=== PATIENT | female | born 1945 | race Caucasian/White ===

== ENCOUNTER 2019-09-21 16:35 | Observation (INO) ==
[2019-09-21 17:05] LABS: Basophils # 0.1 10*3/uL (0.0-0.2); Basophils % 0.5 % (0.0-0.8); Eosinophils # 0.2 10*3/uL (0.0-0.87); Eosinophils % 2.5 % (0.00-10.9); Hematocrit 36.2 VOL% (35.7-47.0); Hemoglobin 11.3 GM/DL (12.0-16.0); Immature Granulocytes % 0.3 %; Immature Granulocytes Absolute 0.03 #; Lymphocytes % 31.3 % (21.3-54.2); Mean Corpuscular HGB Conc 31.2 GM/DL (32-36); Mean Platelet Volume 10.8 FL (9.6-12.0); Neutrophils % 55.4 % (38.7-73.9); Platelet Count 211 T/CUMM (130-400); Red Blood Count 4.21 MC/CUMM (3.8-5.5); Red Cell Distribution Width 15.8 % (9.3-17.3); White Blood Count 9.5 T/CUMM (4-12)
[2019-09-21 17:21] LABS: PT Patient Result 10.6 SECS (9.8-11.9); Partial Thromboplastin Time 27.2 SECS (23.9-33.8)
[2019-09-21 17:22] LABS: Alanine Aminotransferase 23 U/L (13-56); Albumin 3.3 G/DL (3.4-5.0); Alkaline Phosphatase 83 U/L (45-117); Aspartate Amino Transferase 21 U/L (0-37); Bilirubin,Total < 0.39 MG/DL (0.2-1.0); Blood Urea Nitrogen 22 MG/DL (7-18); Calcium 8.7 MG/DL (8.5-10.1); Estimated Glom Filtration Rate 44 ML/MIN; Glucose 179 MG/DL (74-106); Osmolality,Calculated 272.4 MOS/KG (273-304); Total Protein 7.4 G/DL (6.4-8.3)
[2019-09-21] MEDS ORDERED: SODIUM CHLORIDE 0.9% 1,000 ML IV STA (17:57)
[2019-09-21] MEDS ORDERED: GLUCAGON 1 MG VIAL IM PRN ×2 (19:23)
[2019-09-21] MEDS ORDERED: LACTULOSE 20 GM/30 ML UDCUP PO PRN (19:23)
[2019-09-21] MEDS ORDERED: DOCUSATE SODIUM 100 MG CAPSULE PO PRN (19:23)
[2019-09-21] MEDS ORDERED: ACETAMINOPHEN 325 MG TABLET PO PRN (19:23)
[2019-09-21] MEDS ORDERED: ZALEPLON 5 MG CAPSULE PO PRN (19:23)
[2019-09-21] MEDS ORDERED: ONDANSETRON 4 MG/2 ML VIAL IV PRN (19:23)
[2019-09-21] MEDS ORDERED: DEXTROSE 50% 25 GM/50 ML VIAL IV PRN ×2 (19:23)
[2019-09-21] MEDS ORDERED: MECLIZINE 25 MG TABLET PO PRN (19:39)
[2019-09-21] MEDS ORDERED: GABAPENTIN 300 MG CAPSULE PO PRN (19:39)
[2019-09-21 19:40] LABS: Apearance,Urine CLOUDY (Clear); Bacteria,Urine Occasional /HPF (Few); Bilirubin,Urine Negative (Negative); Blood, Urine Negative (Negative); Glucose,Urine (UA) Negative (Negative); Ketones,Urine Negative (Negative); Nitrite,Urine Negative (Negative); Protein,Urine Negative; Squamous Epithelial Cell,Urine Occasional /HPF (0-10); Urine Color Amber (Yellow); Urine Specific Gravity 1.012 (1.001-1.035); Urine Urobilinogen < 2.0 EU/DL (0.2-1.0); WBC,Urine <1 /HPF (0-6)
[2019-09-21] MEDS ORDERED: LEVOTHYROXINE 75 MCG TABLET PO SCH (21:00)
[2019-09-21] MEDS: GABAPENTIN 600 MG TABLET PO SCH (21:49)
[2019-09-21] MEDS: CITALOPRAM 40 MG TABLET PO SCH (21:49)
[2019-09-21] MEDS: CETIRIZINE 10 MG TABLET PO SCH (21:49)
[2019-09-21] MEDS: INSULIN REGULAR 100 UNIT/ML SUBCUT SCH (21:50)
[2019-09-21] MEDS: ENOXAPARIN 40 MG/0.4 ML SYRINGE SUBCUT SCH (21:50)
[2019-09-22 06:24] LABS: Basophils % 0.3 % (0.0-0.8); Eosinophils # 0.2 10*3/uL (0.0-0.87); Eosinophils % 2.6 % (0.00-10.9); Hematocrit 33.9 VOL% (35.7-47.0); Hemoglobin 10.2 GM/DL (12.0-16.0); Immature Granulocytes % 0.2 %; Immature Granulocytes Absolute 0.02 #; Lymphocytes # 4.2 10*3/uL (1.4-4.0); Lymphocytes % 48.5 % (21.3-54.2); Mean Corpuscular HGB Conc 30.1 GM/DL (32-36); Mean Corpuscular Volume 89.4 FL (87-102); Mean Platelet Volume 11.4 FL (9.6-12.0); Monocytes % 10.6 % (1.7-12.7); Neutrophils % 37.8 % (38.7-73.9); Platelet Count 190 T/CUMM (130-400); Red Blood Count 3.79 MC/CUMM (3.8-5.5); Red Cell Distribution Width 15.9 % (9.3-17.3); White Blood Count 8.6 T/CUMM (4-12)
[2019-09-22 06:42] LABS: Calcium 8.6 MG/DL (8.5-10.1); Osmolality,Calculated 279.5 MOS/KG (273-304); Risk Ratio 4.33; Thyroid Stimulating Hormone 0.226 uIU/ml (0.358-3.74); VLDL CHOLESTEROL 50.8 MG/DL
[2019-09-22 07:50] LABS: Atypical Lymphocytes Few; Band Neutrophils 3 % (0-10); Eosinophils 5 % (0-10); Hypochromasia 1+; Lymphocytes 41 % (20-55); Microcytosis 1+; Platelet Estimate Adequate; Segmented Neutrophils 46 % (50-85); Total Cells Counted 100
[2019-09-22] MEDS: GABAPENTIN 600 MG TABLET PO SCH ×5 (08:31→21:02)
[2019-09-22] MEDS: INSULIN REGULAR 100 UNIT/ML SUBCUT SCH ×4 (08:31→22:10)
[2019-09-22] MEDS ORDERED: TRIAMTERENE/HCTZ 37.5-25 MG TABLET PO SCH (09:00)
[2019-09-22] MEDS: PANTOPRAZOLE 40 MG TABLET PO SCH (09:49)
[2019-09-22] MEDS: ASPIRIN EC 81 MG TABLET PO SCH (09:49)
[2019-09-22] MEDS: GLIMEPIRIDE 4 MG TABLET PO SCH ×2 (09:49→18:20)
[2019-09-22] MEDS ORDERED: LEVOTHYROXINE 50 MCG TABLET PO SCH (18:45)
[2019-09-22] MEDS ORDERED: SODIUM CHLORIDE 0.45% 1,000 ML IV SCH (19:00)
[2019-09-22] MEDS: CETIRIZINE 10 MG TABLET PO SCH (21:02)
[2019-09-22] MEDS: ENOXAPARIN 40 MG/0.4 ML SYRINGE SUBCUT SCH (21:03)
[2019-09-22] MEDS: CITALOPRAM 40 MG TABLET PO SCH (21:03)
[2019-09-23] MEDS: GABAPENTIN 600 MG TABLET PO SCH ×2 (07:04→09:26)
[2019-09-23 09:02] LABS: Basophils # 0.1 10*3/uL (0.0-0.2); Basophils % 0.6 % (0.0-0.8); Eosinophils # 0.3 10*3/uL (0.0-0.87); Eosinophils % 2.9 % (0.00-10.9); Hematocrit 35.2 VOL% (35.7-47.0); Immature Granulocytes % 0.3 %; Immature Granulocytes Absolute 0.03 #; Lymphocytes # 3.6 10*3/uL (1.4-4.0); Lymphocytes % 34.9 % (21.3-54.2); Mean Corpuscular HGB Conc 31.3 GM/DL (32-36); Mean Corpuscular Volume 85.6 FL (87-102); Mean Platelet Volume 11.4 FL (9.6-12.0); Neutrophils % 52.3 % (38.7-73.9); Platelet Count 182 T/CUMM (130-400); Red Blood Count 4.11 MC/CUMM (3.8-5.5); Red Cell Distribution Width 15.9 % (9.3-17.3); White Blood Count 10.3 T/CUMM (4-12)
[2019-09-23] MEDS: INSULIN REGULAR 100 UNIT/ML SUBCUT SCH ×2 (09:25→12:36)
[2019-09-23] MEDS: GLIMEPIRIDE 4 MG TABLET PO SCH ×2 (09:25→10:36)
[2019-09-23] MEDS: PANTOPRAZOLE 40 MG TABLET PO SCH (09:26)
[2019-09-23] MEDS: ASPIRIN EC 81 MG TABLET PO SCH (09:26)
[2019-09-23 09:27] LABS: Calcium 8.7 MG/DL (8.5-10.1); Osmolality,Calculated 270.1 MOS/KG (273-304)
[2019-09-23 12:31] VITALS: BP 110/70
== END 2019-09-23 14:55 | disposition home or self-care (01) ==
LOC: N.ED 16:35 → N.EDINP 16:35 → N.TELEN 20:18
PROVIDERS: ADMIT Hospitalist; ATTEND Hospitalist

== ENCOUNTER 2022-03-30 07:57 | Observation (INO) ==
[2022-03-30] MEDS ORDERED: ONDANSETRON 4 MG/2 ML VIAL IV STA (09:29)
[2022-03-30] MEDS ORDERED: SODIUM CHLORIDE 0.9% 500 ML IV STA (09:35)
[2022-03-30 10:32] LABS: Basophils # 0.1 10*3/uL (0.0-0.2); Basophils % 0.5 % (0.0-0.8); Eosinophils % 0.4 % (0.00-10.9); Hematocrit 37.4 VOL% (35.7-47.0); Hemoglobin 12.1 GM/DL (12.0-16.0); Immature Granulocytes % 0.3 %; Immature Granulocytes Absolute 0.03 #; Lymphocytes # 2.4 10*3/uL (1.4-4.0); Lymphocytes % 24.1 % (21.3-54.2); Mean Corpuscular HGB Conc 32.4 GM/DL (32-36); Mean Corpuscular Volume 84.4 FL (87-102); Neutrophils % 64.7 % (38.7-73.9); Platelet Count 256 T/CUMM (130-400); Red Blood Count 4.43 MC/CUMM (3.8-5.5); Red Cell Distribution Width 16.5 % (9.3-17.3); White Blood Count 10.1 T/CUMM (4-12)
[2022-03-30 10:55] LABS: Albumin 4.2 G/DL (3.4-5.0); Bilirubin,Total 0.6 MG/DL (0.20-1.00); Calcium 10.6 MG/DL (8.5-10.1); Potassium 5.5 MMOL/L (3.5-5.1); Total Protein 8.8 G/DL (6.4-8.2)
[2022-03-30 12:27] LABS: Bacteria,Urine Occasional /HPF (Few); Hyaline Casts,Urine 8 /LPF (0-3); Mucus,Urine Occasional /LPF (Occasional); RBC,Urine 6 /HPF (0-4); Squamous Epithelial Cell,Urine Occasional /HPF (0-10)
[2022-03-30 12:28] LABS: Glucose,Urine (UA) Negative (Negative); Ketones,Urine Trace mg/dL (Negative); Protein,Urine 30 mg/dL (Negative); Urine Appearance Clear (Clear); Urine Color Yellow (Yellow)
[2022-03-30 12:29] LABS: Bilirubin,Urine Negative (Negative); Blood, Urine Trace mg/dL (Negative); Nitrite,Urine Negative (Negative); Urine Urobilinogen 0.2 eU/dL (<2.0)
[2022-03-30] MEDS ORDERED: ACETAMINOPHEN 325 MG TABLET PO PRN (14:02)
[2022-03-30] MEDS ORDERED: ONDANSETRON 4 MG/2 ML VIAL IV PRN (14:02)
[2022-03-30] MEDS ORDERED: ENOXAPARIN 30 MG/0.3 ML SYRINGE SUBCUT SCH (14:30)
[2022-03-30] MEDS: SODIUM CHLORIDE 0.9% 1,000 ML IV SCH (14:35)
[2022-03-30] MEDS ORDERED: SODIUM POLYSTYRENE SULFATE 15 GM/60 ML BOTTLE PO STA (14:52)
[2022-03-30] MEDS: INSULIN LISPRO 100 UNIT/ML SUBCUT SCH (17:08)
[2022-03-30] MEDS ORDERED: ENOXAPARIN 60 MG/0.6 ML SYRINGE SUBCUT SCH (18:00)
[2022-03-30] MEDS: GABAPENTIN 600 MG TABLET PO SCH (21:09)
[2022-03-31] MEDS: INSULIN LISPRO 100 UNIT/ML SUBCUT SCH ×5 (00:07→22:14)
[2022-03-31] MEDS: DULoxetine 30 MG CAPSULE PO SCH ×2 (00:10→21:38)
[2022-03-31] MEDS: CHOLESTYRAMINE 4 GM PACK PO SCH ×3 (00:10→21:38)
[2022-03-31] MEDS: CITALOPRAM 40 MG TABLET PO SCH ×2 (00:13→21:39)
[2022-03-31] MEDS: SODIUM CHLORIDE 0.9% 1,000 ML IV SCH (03:48)
[2022-03-31 04:45] LABS: Basophils % 0.6 % (0.0-0.8); Eosinophils # 0.1 10*3/uL (0.0-0.87); Eosinophils % 1.4 % (0.00-10.9); Hemoglobin 10.1 GM/DL (12.0-16.0); Immature Granulocytes % 0.2 %; Immature Granulocytes Absolute 0.01 #; Lymphocytes % 46.8 % (21.3-54.2); Mean Corpuscular HGB Conc 30.6 GM/DL (32-36); Mean Corpuscular Volume 88.2 FL (87-102); Mean Platelet Volume 11.3 FL (9.6-12.0); Monocytes # 0.8 10*3/uL (0.11-0.8); Monocytes % 12.6 % (1.7-12.7); Neutrophils % 38.4 % (38.7-73.9); Platelet Count 219 T/CUMM (130-400); Red Blood Count 3.74 MC/CUMM (3.8-5.5); Red Cell Distribution Width 16.8 % (9.3-17.3); White Blood Count 6.4 T/CUMM (4-12)
[2022-03-31 04:59] LABS: Calcium 8.8 MG/DL (8.5-10.1); Osmolality,Calculated 292.1 MOS/KG (273-304); Potassium 3.6 MMOL/L (3.5-5.1)
[2022-03-31 05:10] LABS: Lymphocytes 40 % (20-55); Total Cells Counted 100
[2022-03-31 05:11] LABS: Hypochromia 1+
[2022-03-31 05:12] LABS: Microcytosis Slight
[2022-03-31 05:13] LABS: Platelet Estimate Normal; Risk Ratio 2.09; Thyroid Stimulating Hormone 0.604 uIU/ml (0.358-3.74); VLDL Cholesterol 29.2 MG/DL
[2022-03-31] MEDS: PANTOPRAZOLE 40 MG TABLET PO SCH (10:14)
[2022-03-31] MEDS: GABAPENTIN 600 MG TABLET PO SCH ×3 (10:14→21:39)
[2022-03-31] MEDS ORDERED: SODIUM CHLORIDE 0.9% 500 ML IV ONE (12:10)
[2022-03-31] MEDS ORDERED: cefTRIAXone 2,000 MG in SODIUM CHLORIDE 0.9% 100 ML IV SCH (12:30)
[2022-03-31] MEDS ORDERED: ROSUVASTATIN 20 MG TABLET PO SCH (21:00)
[2022-03-31] MEDS ORDERED: LEVOTHYROXINE 75 MCG TABLET PO SCH (21:00)
[2022-04-01] MEDS: SODIUM CHLORIDE 0.9% 1,000 ML IV SCH ×2 (03:28→09:31)
[2022-04-01 05:02] LABS: Basophils % 0.4 % (0.0-0.8); Eosinophils # 0.2 10*3/uL (0.0-0.87); Eosinophils % 2.6 % (0.00-10.9); Hematocrit 31.1 VOL% (35.7-47.0); Hemoglobin 9.6 GM/DL (12.0-16.0); Immature Granulocytes % 0.3 %; Immature Granulocytes Absolute 0.02 #; Lymphocytes # 3.3 10*3/uL (1.4-4.0); Lymphocytes % 44.8 % (21.3-54.2); Mean Corpuscular HGB Conc 30.9 GM/DL (32-36); Mean Corpuscular Volume 90.9 FL (87-102); Mean Platelet Volume 11.6 FL (9.6-12.0); Monocytes # 0.7 10*3/uL (0.11-0.8); Monocytes % 9.4 % (1.7-12.7); Neutrophils % 42.5 % (38.7-73.9); Platelet Count 178 T/CUMM (130-400); Red Blood Count 3.42 MC/CUMM (3.8-5.5); Red Cell Distribution Width 17.2 % (9.3-17.3); White Blood Count 7.3 T/CUMM (4-12)
[2022-04-01 05:23] LABS: Calcium 8.3 MG/DL (8.5-10.1); Osmolality,Calculated 284.1 MOS/KG (273-304); Potassium 3.4 MMOL/L (3.5-5.1)
[2022-04-01 08:07] VITALS: BP 95/57
[2022-04-01] MEDS ORDERED: POTASSIUM CHLORIDE 20 MEQ TABLET PO ONE (08:10)
[2022-04-01] MEDS ORDERED: ENOXAPARIN 30 MG/0.3 ML SYRINGE SUBCUT SCH (09:00)
[2022-04-01] MEDS ORDERED: ASPIRIN EC 81 MG TABLET PO SCH (09:00)
[2022-04-01] MEDS: PANTOPRAZOLE 40 MG TABLET PO SCH (09:15)
[2022-04-01] MEDS: GABAPENTIN 600 MG TABLET PO SCH (09:15)
[2022-04-01] MEDS: INSULIN LISPRO 100 UNIT/ML SUBCUT SCH ×2 (09:18→11:42)
[2022-04-01] MEDS: CHOLESTYRAMINE 4 GM PACK PO SCH (09:18)
[2022-04-01] MEDS ORDERED: INFLUENZA VIRUS VACCINE 0.5 ML SYRINGE IM ONE (11:33)
== END 2022-04-01 12:45 | disposition home or self-care (01) ==
LOC: N.ED 07:57 → N.EDINP 07:57 → SUATTDRO 14:00 → N.3E 15:43 → N.TELEN 17:39
PROVIDERS: ADMIT Hospitalist; ATTEND Family Medicine